=== PATIENT | male | born 1945 | race Caucasian/White ===

== ENCOUNTER 2020-05-25 14:18 | Observation (INO) | payer MEDICARE, OTHER ==
[~2020-05-25] VITALS: Ht 185.4 cm; Wt 73.2 kg
[2020-05-25 15:00] LABS: BASOPHILS # (AUTO) 0.1 X10'3 (0-0.2); BASOPHILS % (AUTO) 1.1 % (0-1); EOSINOPHILS # (AUTO) 0.5 X10'3 (0-0.9); EOSINOPHILS % (AUTO) 4.3 % (0-6); HEMATOCRIT 41.6 % (42.0-52.0); HEMOGLOBIN 14.5 g/dl (14.0-17.9); LYMPHOCYTES # (AUTO) 2.2 X10'3 (1.1-4.8); LYMPHOCYTES % (AUTO) 20.4 % (21-51); MEAN CORPUSCULAR HEMOGLOBIN 32.9 PG (27.0-31.0); MEAN CORPUSCULAR HGB CONC 34.7 g/dL (33.0-36.5); MEAN CORPUSCULAR VOLUME 94.7 FL (78-98); MONOCYTES # (AUTO) 0.7 X10'3 (0-0.9); MONOCYTES % (AUTO) 6.5 % (2-12); NEUTROPHILS # (AUTO) 7.2 X10'3 (1.8-7.7); NEUTROPHILS % (AUTO) 67.7 % (42-75); PLATELET COUNT 208 X10'3 (140-440); WHITE BLOOD COUNT 10.6 X10'3 (4.5-11.0)
[2020-05-25 15:13] LABS: PARTIAL THROMBOPLASTIN TIME 27 SECONDS (22-32)
[2020-05-25 15:15] LABS: ALANINE AMINOTRANSFERASE 22 U/L (12-78); ALBUMIN 4.1 G/DL (3.4-5.0); ALBUMIN/GLOBULIN RATIO 1.1 (1.1-1.5); ALKALINE PHOSPHATASE 92 IU/L (46-116); ANION GAP 11 (8-16); ASPARTATE AMINO TRANSFERASE 17 U/L (10-37); BILIRUBIN,TOTAL 0.4 MG/DL (0.1-1.0); BLOOD UREA NITROGEN 25 MG/DL (7-18); BUN/CREATININE RATIO 20.3 (5.4-32.0); CALCIUM 9.4 MG/DL (8.5-10.1); CHLORIDE 103 MMOL/L (99-107); CREATININE 1.23 MG/DL (0.60-1.10); GLUCOSE 123 MG/DL (70-104); POTASSIUM 4.2 MMOL/L (3.5-5.1); SODIUM 138 MMOL/L (135-145); TOTAL CARBON DIOXIDE 23.9 MMOL/L (24-32); eGFR 57 ML/MIN
[2020-05-25 15:34] LABS: CLARITY,URINE CLEAR (Clear); COLOR,URINE YELLOW (Yellow); GLUCOSE, URINE NEGATIVE (Neg); KETONES,URINE NEGATIVE (Neg); LEUKOCYTE ESTERASE ,URINE NEGATIVE (Neg); NITRITES, URINE NEGATIVE (Neg); OCCULT BLOOD,URINE NEGATIVE (Neg); PROTEIN,URINE NEGATIVE (Neg); UROBILINOGEN,URINE 0.2 E.U/dL (0.2-1.0)
[2020-05-25 15:38] LABS: UA COLLECTION TYPE VOIDED
[2020-05-25] MEDS ORDERED: potassium CL 10mEq/100ml bag 100 ML IV PRN ×2 (16:40)
[2020-05-25] MEDS ORDERED: magnesium 4gm in 100ml NS 100 ML IV PRN (16:40)
[2020-05-25] MEDS ORDERED: magnesium Cl slow-release 64mg tablet PO PRN (16:40)
[2020-05-25] MEDS ORDERED: acetaminophen 325mg tablet PO PRN (16:40)
[2020-05-25] MEDS ORDERED: magnesium 2GM in 50ml NS 50 ML IV PRN (16:40)
[2020-05-25] MEDS ORDERED: ondansetron/PF 4mg/2ml inj IV PRN (16:40)
[2020-05-25] MEDS ORDERED: potassium Cl 20 mEq SR tablet PO PRN ×2 (16:40)
[2020-05-25] MEDS ORDERED: METF-438 PO (17:40)
[2020-05-25 18:50] VITALS: BP 129/77
[2020-05-25] MEDS: K and/or MAG REPLACEMENT MC SCH (20:00)
[2020-05-25 21:20] LABS: HEMOGLOBIN A1C 6.7 % (4.5-6.2)
[2020-05-25 22:00] VITALS: BP_SYST 119; BP_SYST 123; BP_DIAS 65; BP_DIAS 68
--- NOTE | 2020-05-25 22:11 | NUR ---
[age]M ANNA MACARIO 75 HERE FOR SYNCOPE HAS BLOOD SUGAR 206. SHOULD HE BE ON DIABETIC PROTOCOL? THANK YOU. FROM [phone]
[2020-05-25] MEDS ORDERED: dextrose ORAL solution 15 GM/59 ML bottle PO PRN ×2 (22:15)
[2020-05-25] MEDS ORDERED: insulin Lispro (HumaLOG) vial - multi-dose SQ SCH (22:15)
[2020-05-25] MEDS ORDERED: dextrose 50%-water 50ml dispensing syringe IV PRN ×2 (22:15)
[2020-05-25] MEDS ORDERED: glucagon, human recombinant 1mg kit SUBCUT PRN (22:15)
[2020-05-25] MEDS ORDERED: MESSAGE TO PHARMACY PO ONE (22:15)
[2020-05-26 01:55] VITALS: BP 98/50
[2020-05-26 06:00] VITALS: BP 104/68
--- NOTE | 2020-05-26 06:46 | NUR ---
Patient in room [facility]THO 4012A. I have received report from YONATHAN SHEN and had the opportunity to ask questions and assume patient care.
[2020-05-26 06:51] LABS: EOSINOPHILS # (AUTO) 0.5 X10'3 (0-0.9); WHITE BLOOD COUNT 8.7 X10'3 (4.5-11.0)
[2020-05-26 06:52] LABS: BASOPHILS # (AUTO) 0.1 X10'3 (0-0.2); EOSINOPHILS % (AUTO) 5.3 % (0-6); HEMATOCRIT 38.4 % (42.0-52.0); LYMPHOCYTES # (AUTO) 2.1 X10'3 (1.1-4.8); LYMPHOCYTES % (AUTO) 23.8 % (21-51); MEAN CORPUSCULAR HEMOGLOBIN 32.4 PG (27.0-31.0); MEAN CORPUSCULAR HGB CONC 33.9 g/dL (33.0-36.5); MEAN CORPUSCULAR VOLUME 95.6 FL (78-98); MONOCYTES # (AUTO) 0.8 X10'3 (0-0.9); NEUTROPHILS # (AUTO) 5.3 X10'3 (1.8-7.7); NEUTROPHILS % (AUTO) 60.9 % (42-75); PLATELET COUNT 185 X10'3 (140-440); RED BLOOD COUNT 4.02 X10'6 (4.70-6.10)
[2020-05-26 07:19] LABS: ALBUMIN 3.5 G/DL (3.4-5.0); ANION GAP 10 (8-16); BLOOD UREA NITROGEN 21 MG/DL (7-18); BUN/CREATININE RATIO 20.8 (5.4-32.0); CALCIUM 8.9 MG/DL (8.5-10.1); CHLORIDE 103 MMOL/L (99-107); CHOL/HDL RATIO 5.3 (0.00-4.99); CHOLESTEROL 160 MG/DL (0-200); CREATININE 1.01 MG/DL (0.60-1.10); GLUCOSE 96 MG/DL (70-104); HDL CHOLESTEROL 30 MG/DL (35-60); LDL CHOLESTEROL 118 MG/DL (50-100); MAGNESIUM 1.7 MG/DL (1.5-2.4); POTASSIUM 4.1 MMOL/L (3.5-5.1); SODIUM 138 MMOL/L (135-145); TOTAL CARBON DIOXIDE 25.5 MMOL/L (24-32); TRIGLYCERIDES 97 MG/DL (20-135); eGFR 72 ML/MIN
[2020-05-26] MEDS: K and/or MAG REPLACEMENT MC SCH ×2 (08:00→20:00)
[2020-05-26 10:00] VITALS: BP 108/62
[2020-05-26] MEDS: aspirin 81mg tablet.DR PO SCH (10:08)
--- NOTE | 2020-05-26 12:12 | NUR ---
Page Sent PAGER ID: [phone] MESSAGE: EKTA [id number]: ANNA CORTEZ 4012A...PT AT MRI, NO CTA DONE, DO YOU WANT MRA?
[2020-05-26] MEDS: atorvastatin 20mg tablet PO SCH (13:01)
--- NOTE | 2020-05-26 14:34 | NUR ---
DM Consult: A1C less than 7 and not appropriate for DM ed at this time. To f/u 05/30 for initial assessment. Addendum: 05/26/20 at [address] Amended: Links added.
[2020-05-26 18:00] VITALS: BP 117/69
--- NOTE | 2020-05-26 18:48 | NUR ---
Problems reprioritized. Patient report given, questions answered & plan of care reviewed with YONATHAN SHEN.
[2020-05-26] MEDS ORDERED: insulin glargine (Lantus) pen - multi-dose SQ SCH (21:00)
[2020-05-26 22:00] VITALS: BP_SYST 104; BP_SYST 98; BP_SYST 99; BP_DIAS 61; BP_DIAS 62; BP_DIAS 70
[2020-05-27 05:36] LABS: BASOPHILS # (AUTO) 0.1 X10'3 (0-0.2); BASOPHILS % (AUTO) 0.9 % (0-1); EOSINOPHILS # (AUTO) 0.5 X10'3 (0-0.9); EOSINOPHILS % (AUTO) 5.2 % (0-6); HEMATOCRIT 39.6 % (42.0-52.0); HEMOGLOBIN 13.4 g/dl (14.0-17.9); LYMPHOCYTES # (AUTO) 2.1 X10'3 (1.1-4.8); LYMPHOCYTES % (AUTO) 22.5 % (21-51); MEAN CORPUSCULAR HEMOGLOBIN 32.3 PG (27.0-31.0); MEAN CORPUSCULAR HGB CONC 33.9 g/dL (33.0-36.5); MEAN CORPUSCULAR VOLUME 95.3 FL (78-98); MONOCYTES # (AUTO) 0.8 X10'3 (0-0.9); MONOCYTES % (AUTO) 8.4 % (2-12); NEUTROPHILS # (AUTO) 5.9 X10'3 (1.8-7.7); PLATELET COUNT 190 X10'3 (140-440); RED BLOOD COUNT 4.15 X10'6 (4.70-6.10); RED CELL DISTRIBUTION WIDTH 14.2 % (11.5-14.5); WHITE BLOOD COUNT 9.4 X10'3 (4.5-11.0)
[2020-05-27 05:45] LABS: ALBUMIN 3.5 G/DL (3.4-5.0); ANION GAP 6 (8-16); BLOOD UREA NITROGEN 20 MG/DL (7-18); CHLORIDE 103 MMOL/L (99-107); CREATININE 1.11 MG/DL (0.60-1.10); GLUCOSE 113 MG/DL (70-104); MAGNESIUM 1.7 MG/DL (1.5-2.4); POTASSIUM 4.5 MMOL/L (3.5-5.1); SODIUM 136 MMOL/L (135-145); eGFR 64 ML/MIN
[2020-05-27 06:00] VITALS: BP 113/72
--- NOTE | 2020-05-27 06:30 | NUR ---
Patient in room ORTHO 4014A. I have received report from YONATHAN Toussaint and had the opportunity to ask questions and assume patient care.
[2020-05-27] MEDS: K and/or MAG REPLACEMENT MC SCH (08:00)
[2020-05-27] MEDS: aspirin 81mg tablet.DR PO SCH (08:25)
[2020-05-27] MEDS: atorvastatin 20mg tablet PO SCH (08:25)
[2020-05-27] MEDS ORDERED: ATOR20TA66 PO (13:15)
[2020-05-27] MEDS ORDERED: ASPI-1071 PO (13:15)
--- NOTE | 2020-05-27 13:53 | NUR ---
DC INSTRUCTIONS GIVEN, QUESTIONS ANSWERED. IV REMOVED BY STUDENT RN, TELE REMOVED. PT DRESSED SELF. WHEELED DOWN TO PRIVATE VEHICLE WITH IN STABLE CONDITION.
== END 2020-05-27 13:35 | disposition home or self-care (01) ==
LOC: ER 14:20 → INTOOBSV 16:39 → ED HOLD 16:39 → EDBEDREQ 17:18 → ORTHO 4S 18:46
PROVIDERS: ADMIT Internal Medicine; ATTEND Internal Medicine
DX: R47.01 Aphasia (principal); R55 Syncope and collapse; G45.9 Transient cerebral ischemic attack, unspecified; E11.9 Type 2 diabetes mellitus without complications; Z86.73 Personal history of transient ischemic attack (TIA), and cerebral infarction without residual deficits; Z79.84 Long term (current) use of oral hypoglycemic drugs; Z79.899 Other long term (current) drug therapy
CPT/HCPCS: 36415; 70450; 70544; 70551; 71045; 80048; 80053; 80061; 81003; 82948; 83036; 83735; 84484; 85025; 85610; 85730; 86885; 86900; 86901; 87081; 93005; 93308; 93880; 97110; 97161; 97530; 99285; G0378; J1815